=== PATIENT | female | born 1960 | race African-American/Black ===

== ENCOUNTER 2018-11-06 10:56 | Emergency (ER) | payer OTHER ==
[2018-11-06 11:08] VITALS: BMI 28.3
--- NOTE | 2018-11-06 12:08 | PDOC ---
History of Present Illness - General Chief Complaint: Pain Stated Complaint: RT LOWER ABD PAIN - History of Present Illness Initial Comments: The pt is a 58F w/ no reported PMH who presents for evaluation of 4 days of constant, right flank/inguinal abdominal pain that does radiates to/from her back, was mildly alleviated by Ibuprofen, and is exacerbated by touch/movement and also alleviated by recumbency. Denies fevers/chills, N/V/C/D, chest pain, blood in her urine or stool, dysuria , or changes in sensation. PMD: Dr. Richardson 11/06/18 12:22 Past History - Past Medical History Allergies/Adverse Reactions: Allergies Allergy/AdvReac Type Severity Reaction Status Date / Time No Known Allergies Allergy Verified 11/06/18 11:04 Home Medications: Ambulatory Orders Methocarbamol [Robaxin -] 500 mg PO TID #21 tablet 11/06/18 COPD: No - Immunization History Immunization Up to Date: No - Suicide/Smoking/Psychosocial Hx Smoking Status: Yes Smoking History: Never smoked Have you smoked in the past 12 months: Yes Number of Cigarettes Smoked Daily: 7 Information on smoking cessation initiated: No 'Breaking Loose' booklet given: 09/17/13 Hx Alcohol Use: No Drug/Substance Use Hx: No Review of Systems - Review of Systems Able to Perform ROS?: Yes Comments:: GENERAL/CONSTITUTIONAL: No fever or chills. No weakness HEAD, EYES, EARS, NOSE AND THROAT: No change in vision and hearing. No sore throat CARDIOVASCULAR: No chest pain or shortness of breath RESPIRATORY: Denies cough, hemoptysis GASTROINTESTINAL: No nausea, vomiting, diarrhea or constipation GENITOURINARY: No dysuria, frequency, or change in urination MUSCULOSKELETAL: No joint or muscle swelling or pain. No neck or back pain SKIN: No rash NEUROLOGIC: No headache, vertigo, loss of consciousness, or change in strength/ sensation ENDOCRINE: No increased thirst. No abnormal weight change HEMATOLOGIC/LYMPHATIC: No anemia, easy bleeding, or history of blood clots ALLERGIC/IMMUNOLOGIC: No hives or skin allergy 11/06/18 12:06 Is the patient limited Icelandic proficient: No *Physical Exam - Vital Signs Last Vital Signs Temp Pulse Resp BP Pulse Ox 98.1 F 75 17 105/44 L 99 11/06/18 11:05 11/06/18 11:05 11/06/18 11:05 11/06/18 11:05 11/06/18 11:05 - Physical Exam Comments: GENERAL: Awake, alert, and oriented to person/place/time, in no acute distress HEAD: No signs of trauma, normocephalic, atraumatic EYES: PERRLA, EOMI, sclera anicteric, conjunctiva clear ENT: Hearing grossly normal, nares patent, oropharynx clear without exudates. Moist mucosa LUNGS: No distress, speaks full sentences, clear to auscultation bilaterally HEART: Regular rate and rhythm, normal S1 and S2, no murmurs appreciated, peripheral pulses normal and equal bilaterally ABDOMEN: Soft, R inguinal/flank TTP w/o rebound or guarding; +R CVA TTP; normoactive bowel sounds EXTREMITIES: Normal inspection, Normal range of motion, no edema. No clubbing or cyanosis NEUROLOGICAL: Cranial nerves II through XII grossly intact. Normal speech, normal gait, no focal sensorimotor deficits SKIN: Warm, Dry, no rash or lesions noted 11/06/18 12:08 ED Treatment Course - LABORATORY CBC & Chemistry Diagram: 11/06/18 12:45 11/06/18 12:45 Medical Decision Making - Medical Decision Making The pt is a 58F w/ no reported PMH who presents for evaluation of R flank/ inguinal pain for 4 days ED Course labs sent UA Toradol for pain CT spiral for evaluation of nephrolithiasis CT w/o acute pathology Labs unremarkable UA w/o evidence of UTI and w/o blood Pt feels improved s/p toradol Plan for D/C w/ Neurology f/u Rx for Robaxin sent to pt's pharmacy Discharge instructions and return precautions given Pt in agreement and verbalized understanding Dispo: home 11/06/18 12:33 *DC/Admit/Observation/Transfer Diagnosis at time of Disposition: Flank pain - Discharge Dispostion Disposition: HOME Condition at time of disposition: Improved Decision to Admit order: No - Prescriptions Prescriptions: Methocarbamol [Robaxin -] 500 mg PO TID #21 tablet - Referrals Referrals: Alida Darden MD [Primary Care Provider] - - Patient Instructions Printed Discharge Instructions: DI for Flank Pain Additional Instructions: You were seen in the Emergency Department for evaluation of flank pain. Your labs were unremarkable and your CT scan was negative for acute pathology. For pain, you may take Ibuprofen up to 600mg every 6 hours and Tylenol 650mg every 6 hours for pain, alternating each one every 6 hours. Review the handout provided at discharge. A prescription was sent to your pharmacy for Robaxin, take as directed for break through pain. Return to the Emergency Department if you develop fevers/chills, vomiting, diarrhea, blood in your urine or stool, worsening symptoms, or any new/ concerning symptoms. - Post Discharge Activity Forms/Work/School Notes: Back to Work
[2018-11-06] MEDS ORDERED: KETOROLAC TROMETHAMINE 15 MG/ML VIAL IVPUSH ONE (12:21)
--- NOTE | 2018-11-06 12:28 | PDOC ---
Attending Attestation - Resident Resident Name: Terry Hill - ED Attending Attestation I have performed the following: I have examined & evaluated the patient, The case was reviewed & discussed with the resident, I agree w/resident's findings & plan, Exceptions are as noted - HPI HPI: 11/06/18 12:50 Ms. Goodwin is a 58 yo F who presents to the ER with a complaint of right lower abdominal pain Pain has been present for the past 3-4 days Pt has been trying to use motrin and tylenol for pain, no relief Pain is described as "pain", rated "Severe" Pt has not had these symptoms in the past She does have a history of back pain for which she was followed by pain management (did not gt a MRI as was planned for insurance reasons) Pt states this pain is NOT like the pain she has previously had No trauma, no heavy lifting Pt denies dysuria, hematuria, pyuria Pt denies diarrhea, vomiting Pt denies fevers or chills 11/06/18 12:50 - Physicial Exam PE: 11/06/18 12:49 GENERAL: The patient is in no acute distress. ENT: Ears normal, nares patent, oropharynx clear without exudates. Moist mucous membranes. No tonsillar enlargement, no exudates NECK: Normal range of motion, supple, no nuchal rigidity LUNGS: Breath sounds equal, clear to auscultation bilaterally. No wheezes, and no crackles. HEART:Regular rate and rhythm, normal S1 and S2 without murmur, rub or gallop. ABDOMEN: Soft, right lower abdominal tenderness to palpation, voluntary guarding , no rebound EXTREMITIES: Normal range of motion, no edema. NEUROLOGICAL: Cranial nerves II through XII grossly intact. Normal speech. No focal neurological deficits. SKIN: Warm, Dry, normal turgor, no rashes or lesions noted. 11/06/18 13:00 - Medical Decision Making 11/06/18 13:03 58 yo F presenting with R Flank, RLQ pain DD: musculoskeletal pain/strain, kidney stone, pyelonephritis, disc herniation Will do: Labs Spiral CT UA, Urine culture Laboratory Tests 11/06/18 11/06/18 11/06/18 12:45 12:45 12:45 WBC 12.8 H Hgb 12.4 Hct 39.2 Plt Count 363 D BUN 6 L Creatinine 0.6 Urine Blood Negative Urine Nitrite Negative Ur Leukocyte Esterase Negative 11/09/18 12:[address] - no stone seen symptoms likely related to musculoskeletal pain
[2018-11-06] MEDS ORDERED: KETOROLAC TROMETHAMINE 15 MG/ML VIAL ONE ×2 (12:33→12:46)
[2018-11-06 12:59] LABS: HEMATOCRIT 39.2 % (32.4-45.2); HEMOGLOBIN 12.4 GM/dL (10.7-15.3); MCH 22.9 pg (25.7-33.7); MCHC 31.7 g/dl (32.0-36.0); MEAN CELL VOLUME 72.2 fl (80-96); MEAN PLT VOLUME 7.8 fl (7.5-11.1); PLATELET COUNT 363 K/MM3 (134-434); RBC 5.42 M/mm3 (3.60-5.2); RDW 15.2 % (11.6-15.6); WHITE BLOOD COUNT 12.8 K/mm3 (4.0-10.0)
[2018-11-06 13:09] LABS: URINE APPEARANCE CLEAR; URINE BILIRUBIN NEGATIVE (NEGATIVE); URINE COLOR YELLOW; URINE GLUCOSE (UA) NEGATIVE (NEGATIVE); URINE KETONE NEGATIVE (NEGATIVE); URINE LEUK ESTERASE NEGATIVE (NEGATIVE); URINE NITRITE NEGATIVE (NEGATIVE); URINE PROTEIN NEGATIVE (NEGATIVE); URINE UROBILINOGEN 0.2 mg/dL (0.2-1.0)
[2018-11-06 13:28] LABS: ALBUMIN 3.6 g/dl (3.4-5.0); ALK PHOS 89 U/L (45-117); ANION GAP 7 MMOL/L (8-16); BILIRUBIN,TOTAL 0.2 mg/dL (0.2-1); BLOOD UREA NITROGEN 6 mg/dL (7-18); CALCIUM 8.3 mg/dL (8.5-10.1); CHLORIDE 109 mmol/L (98-107); CO2 25 mmol/L (21-32); CREATININE 0.6 mg/dL (0.55-1.3); GLUCOSE,RANDOM 76 mg/dL (74-106); POTASSIUM 4.3 mmol/L (3.5-5.1); SGOT/AST 10 U/L (15-37); SGPT/ALT 15 U/L (13-61); SODIUM 141 mmol/L (136-145)
[2018-11-06 15:13] VITALS: BP 108/56; PULSE 70; TEMP 97.9
== END 2018-11-06 15:47 | disposition home or self-care (01) ==
LOC: JER 10:56
PROC: 3E0333Z Introduction of Anti-inflammatory into Peripheral Vein, Percutaneous Approach (ICD-10-PCS; principal; 2018-11-06)
DX: R10.31 Right lower quadrant pain (principal)
CPT/HCPCS: 36415; 74176-TC; 80053; 81003; 85027; 87086; 99283-25

== ENCOUNTER 2019-08-22 14:27 | Emergency (ER) | payer OTHER ==
[2019-08-22 14:39] VITALS: BP 114/57; PULSE 96; TEMP 100.2; BMI 27.4
--- NOTE | 2019-08-22 14:39 | PDOC ---
Rapid Medical Evaluation Time Seen by Provider: 08/22/19 14:35 Medical Evaluation: Allergies Allergy/AdvReac Type Severity Reaction Status Date / Time No Known Allergies Allergy Verified 11/06/18 11:04 08/22/19 14:35 I have performed a brief in-person evaluation of this patient. The patient presents with a chief complaint of:cough w/ pleuritic CP, sob, body aches and fever x 1 week Pertinent physical exam findings:Low grade fever I have ordered the following:flu, CXR The patient will proceed to the ED for further evaluation Discharge Disposition - Diagnosis Viral syndrome - Referrals - Patient Instructions - Post Discharge Activity
[2019-08-22] MEDS ORDERED: IBUPROFEN 600 MG TABLET (FP) PO ONE ×2 (15:10→15:14)
--- NOTE | 2019-08-22 15:27 | PDOC ---
History of Present Illness - General Chief Complaint: Cold Symptoms Stated Complaint: FLU SYMPTOMS Time Seen by Provider: 08/22/19 14:35 History Source: Patient Exam Limitations: No Limitations - History of Present Illness Initial Comments: 08/22/19 15:22 Patient is a 59-year-old female with no past medical history presents to the ED with complaint of cough, subjective fevers, chills for the last 1 week. She states that she was trying to treated herself believing that she had a common cold but her symptoms would not resolve. She took Tylenol Cold yesterday but it did not help very much. She denies getting a flu shot this year. She also admits to body aches. Past History - Past Medical History Allergies/Adverse Reactions: Allergies Allergy/AdvReac Type Severity Reaction Status Date / Time No Known Allergies Allergy Verified 08/22/19 14:36 Home Medications: Ambulatory Orders NK [No Known Home Medication] 08/22/19 COPD: No - Immunization History Immunization Up to Date: No - Psycho Social/Smoking Cessation Hx Smoking Status: Yes Smoking History: Current every day smoker Have you smoked in the past 12 months: Yes Number of Cigarettes Smoked Daily: 7 Information on smoking cessation initiated: No 'Breaking Loose' booklet given: 09/17/13 Hx Alcohol Use: No Drug/Substance Use Hx: No Review of Systems - Review of Systems Comments:: 08/22/19 15:23 - Review of Systems Able to Perform ROS?: Yes Constitutional: No: Loss of Appetite, Night Sweats, Weakness; + Subjective Fever , + Chills HEENTM: No: Eye Pain, Vision changes, Ear Pain, Throat Pain, Throat Swelling, Mouth Pain, Difficulty Swallowing Respiratory: No: Shortness of Breath, Wheezing, Sputum Production, + Cough Cardiac (ROS): No: Chest Pain, Chest Tightness, Palpitations, Irregular Heart Beat, Edema ABD/GI: No: Nausea, Vomiting, Abdominal Pain, Diarrhea : No Dysuria, No Hematuria, No Frequency, No Urgency Musculoskeletal: No: Back Pain, Joint Pain, Muscle Weakness, Neck Pain, + Muscle Pain Integumentary: No: Lesions, Rash Neurological: No: Headache, Numbness, Tingling, Weakness, Speech Difficulties 08/22/19 15:25 *Physical Exam - Vital Signs Last Vital Signs Temp Pulse Resp BP Pulse Ox 100.2 F H 96 H 18 114/57 L 100 08/22/19 14:36 08/22/19 14:36 08/22/19 14:36 08/22/19 14:36 08/22/19 14:36 - Physical Exam 08/22/19 15:24 - Physical Exam General Appearance: Nourished, Appropriately Dressed, No Distress HEENT: EOMI, Normal Voice, No Pharyngeal Erythema, No Muffled/Hoarse voice, No Tonsillar Exudate, No Tonsillar Erythema, + Nasal Congestion, +Rhinorrhea, Hearing Grossly Normal, TMs Normal, No TM Bulging, No TM Dullness, No TM Erythema Neck: Supple, No Lymphadenopathy (R), No Lymphadenopathy (L), No Rigidity, No Decreased range of motion Respiratory/Chest: Lungs Clear, Normal Breath Sounds. No Respiratory Distress, No Accessory Muscle Use, + wet sounding cough appreciated Cardiovascular: Regular Rhythm, Regular Rate, S1, S2 Gastrointestinal/Abdominal: Normal Bowel Sounds, Soft. Non-tender, No Guarding , No Rebound, No Rigidity Musculoskeletal: Normal Inspection. No Decreased Range of Motion Extremity: Normal Capillary Refill, Normal Inspection Integumentary: Normal Color, Dry. No Rash Neurologic: hand washer II-XII NML intact, Fully Oriented, Alert, Normal Mood/Affect, Normal Response ED Treatment Course - ADDITIONAL ORDERS Additional order review: 08/22/19 16:05 Laboratory Tests 08/22/19 14:39 Influenza A (Rapid) Negative Influenza B (Rapid) Negative - RADIOLOGY Chest X-Ray Result: No Infiltrates - Medications Given in the ED: ED Medications Discontinued Medications Generic Name Dose Route Start Last Admin Trade Name Freq PRN Reason Stop Dose Admin Ibuprofen 600 mg 08/22/19 15:10 08/22/19 15:16 Motrin - PO 08/22/19 15:11 600 mg ONCE ONE Administration Medical Decision Making - Medical Decision Making 08/22/19 15:26 Patient is a 59-year-old female with cough, fever and body aches for the last 1 week. -Flu swab has been sent -Chest x-ray pending -Patient given Motrin in the ED -Will reassess 08/22/19 16:05 Patient has been made aware that her flu swab has resulted as negative. Her chest x-ray does not show no acute pathology. Patient is to follow-up with her primary doctor within 1 to 2 days for repeat evaluation. She can continue Tylenol and ibuprofen for fevers and body aches. Discharge - Discharge Information Problems reviewed: Yes Clinical Impression/Diagnosis: Viral syndrome Condition: Stable Disposition: HOME - Follow up/Referral Referrals: Alida Darden MD [Primary Care Provider] - - Patient Discharge Instructions Patient Printed Discharge Instructions: DI for Common Cold Additional Instructions: Get plenty of rest and drink plenty of fluids. Alternate Tylenol and ibuprofen for fevers or body aches. Follow-up with your primary doctor within 1 to 2 days for repeat evaluation. - Post Discharge Activity
== END 2019-08-22 16:13 | disposition home or self-care (01) ==
LOC: JERFT 14:27
DX: B34.9 Viral infection, unspecified (principal); F17.210 Nicotine dependence, cigarettes, uncomplicated
CPT/HCPCS: 71046-TC-FY; 87804; 99282-25

== ENCOUNTER 2020-10-09 11:19 | Emergency (ER) | payer OTHER ==
[2020-10-09 11:31] VITALS: BP 112/43; PULSE 82; TEMP 98.1; BMI 27.2
[2020-10-09] MEDS ORDERED: IBUPROFEN 600 MG TABLET (FP) PO ONE ×2 (11:50→11:58)
== END 2020-10-09 12:08 | disposition home or self-care (01) ==
LOC: JERFT 11:19
DX: M62.838 Other muscle spasm (principal)
CPT/HCPCS: 99284-25

== ENCOUNTER 2021-11-12 19:04 | Emergency (ER) | payer OTHER ==
[2021-11-12 19:13] VITALS: BP 115/75; PULSE 98; TEMP 98.1; BMI 27.4
[2021-11-12] MEDS ORDERED: SODIUM CHLORIDE 0.9% 500 ML INFUS.BAG IV ONE (20:06)
[2021-11-12 20:21] LABS: BASO % 0.9 % (0-2.0); EOS % 0.8 % (0-4.5); HEMATOCRIT 37.9 % (32.4-45.2); HEMOGLOBIN 12.4 GM/dL (10.7-15.3); MCH 23.1 pg (25.7-33.7); MCHC 32.6 g/dl (32.0-36.0); MEAN CELL VOLUME 70.8 fl (80-96); MEAN PLT VOLUME 7.5 fl (7.5-11.1); MONO % 12.1 % (3.8-10.2); NEUT % 68.2 % (42.8-82.8); PLATELET COUNT 284 10^3/uL (134-434); RBC 5.35 M/mm3 (3.60-5.2); RDW 14.5 % (11.6-15.6); WHITE BLOOD COUNT 14.7 K/mm3 (4.0-10.0)
[2021-11-12 20:34] LABS: ALBUMIN 3.5 g/dl (3.4-5.0); BLOOD UREA NITROGEN 9.6 mg/dL (7-18); CALCIUM 8.8 mg/dL (8.5-10.1)
[2021-11-12 20:37] LABS: CREATININE 0.9 mg/dL (0.55-1.3)
[2021-11-12 20:39] LABS: BILIRUBIN,TOTAL 0.2 mg/dL (0.2-1); TOT PROT 6.8 g/dl (6.4-8.2)
[2021-11-12 21:05] LABS: PH,URINE 5.5 (5.0-8.0); URINE APPEARANCE CLEAR; URINE BILIRUBIN NEGATIVE (NEGATIVE); URINE COLOR YELLOW; URINE GLUCOSE (UA) NEGATIVE (NEGATIVE); URINE KETONE NEGATIVE (NEGATIVE); URINE LEUK ESTERASE NEGATIVE (NEGATIVE); URINE NITRITE NEGATIVE (NEGATIVE); URINE PROTEIN NEGATIVE (NEGATIVE)
== END 2021-11-12 22:13 | disposition home or self-care (01) ==
LOC: JER 19:04
DX: R42 Dizziness and giddiness (principal)
CPT/HCPCS: 36415; 71045-TC-FY; 80053; 81003; 84484; 85025; 87086; 93005; 93010; 99285-25

== ENCOUNTER 2023-06-15 06:14 | Inpatient (IN) | payer BC, OTHER ==
[2023-06-11 15:49] VITALS: BMI 24.8
[2023-06-15] MEDS ORDERED: CEFAZOLIN 2 GM in DEXTROSE 5%-WATER - 100 ML IVPB ONE (09:15)
[2023-06-15] MEDS ORDERED: PROPOFOL 20 ML ONE (09:53)
[2023-06-15] MEDS ORDERED: MIDAZOLAM HCL 2 MG/2 ML SINGLE DOSE VIAL ONE (09:53)
[2023-06-15] MEDS ORDERED: LIDOCAINE HCL/PF 2% SDV 5ML VIAL ONE (09:53)
[2023-06-15] MEDS ORDERED: TRANEXAMIC ACID 1000 MG/10 ML VIAL IVPUSH ONE (10:15)
[2023-06-15] MEDS ORDERED: ROPIVACAINE HCL 0.5% 30ML VIAL ONE (10:20)
[2023-06-15] MEDS ORDERED: BUPIVACAINE HCL/PF 0.5% (5MG/ML) 10 ML VIAL ONE (10:20)
[2023-06-15] MEDS ORDERED: DEXAMETHASONE SOD PHOSPHATE 4 MG/1 ML VIAL ONE (11:05)
[2023-06-15] MEDS ORDERED: ceFAZolin SODIUM 1 GM VIAL ONE (11:05)
[2023-06-15] MEDS ORDERED: VANCOMYCIN 1,000 MG VIAL (RESTRICTED TO ID ONLY) ONE ×2 (11:09→11:54)
[2023-06-15] MEDS ORDERED: LACTATED RINGERS SOLUTION 1,000 ML IV SCH ×2 (11:45→14:15)
[2023-06-15] MEDS ORDERED: ONDANSETRON 4 MG/2 ML VIAL IVPUSH PRN ×2 (11:45→14:01)
[2023-06-15] MEDS ORDERED: oxyCODONE HCL 5 MG TABLET PO PRN ×2 (11:45)
[2023-06-15] MEDS ORDERED: BUPIVICAINE 0.25%/MORPH PF/KETOROLAC - 51ML DISP.SYRINGE IA ONE ×2 (12:22→13:12)
[2023-06-15] MEDS ORDERED: MAG HYDROX/AL HYDROX/SIMETH 30 ML UNIT-DOSE CUP PO PRN (14:01)
[2023-06-15] MEDS ORDERED: MAGNESIUM HYDROX 2400MG/30ML ORAL SUSPENSION 30 ML CUP PO PRN (14:01)
[2023-06-15] MEDS: KETOROLAC TROMETHAMINE 30 MG/1 ML VIAL IVPUSH SCH ×3 (14:08→19:31)
[2023-06-15] MEDS: ACETAMINOPHEN 1000 MG/100 ML BAG IVPB ONE ×2 (14:10→16:22)
[2023-06-15] MEDS: CEFAZOLIN 1 GM in DEXTROSE 5%-WATER - 50 ML IVPB SCH (19:30)
[2023-06-15] MEDS: ACETAMINOPHEN 325 MG TABLET (FP) PO SCH (19:31)
[2023-06-15] MEDS ORDERED: ACETAMINOPHEN 500 MG TABLET (FP) PO SCH ×2 (20:00)
[2023-06-15] MEDS: oxyCODONE HCL 10 MG SUSTAINED ACTING TABLET PO SCH (21:33)
[2023-06-15] MEDS: SENNOSIDES/DOCUSATE COMBO (SENNA PLUS) TABLET (UD) PO SCH (21:33)
[2023-06-15] MEDS ORDERED: GABAPENTIN 300 MG CAPSULE PO SCH (22:00)
[2023-06-16] MEDS: ACETAMINOPHEN 325 MG TABLET (FP) PO SCH ×4 (03:12→20:53)
[2023-06-16] MEDS: CEFAZOLIN 1 GM in DEXTROSE 5%-WATER - 50 ML IVPB SCH ×3 (03:12→20:54)
[2023-06-16 08:21] LABS: HEMATOCRIT 27.4 % (32.4-45.2); HEMOGLOBIN 8.6 G/dL (10.7-15.3); MCH 23.3 pg (25.7-33.7); MCHC 31.4 g/dl (32.0-36.0); MEAN CELL VOLUME 74.2 fl (80-96); MEAN PLT VOLUME 8.3 fl (7.5-11.1); PLATELET COUNT 238.9 10^3/uL (134-434); RBC 3.69 10^6/uL (3.60-5.2); RDW 17.4 % (11.6-15.6); WHITE BLOOD COUNT 18.8 10^3/uL (4.0-10.8)
[2023-06-16] MEDS: PANTOPRAZOLE 40 MG TABLET PO SCH (10:45)
[2023-06-16] MEDS: MULTIVITAMINS (DAILY MVI) TABLET (FP) PO SCH (10:46)
[2023-06-16] MEDS: SENNOSIDES/DOCUSATE COMBO (SENNA PLUS) TABLET (UD) PO SCH ×2 (10:46→21:51)
[2023-06-16] MEDS: ASPIRIN COATED 81 MG TABLET.EC PO SCH ×2 (10:46→21:51)
[2023-06-16] MEDS: oxyCODONE HCL 10 MG SUSTAINED ACTING TABLET PO SCH ×2 (10:47→21:51)
[2023-06-16 11:02] LABS: POTASSIUM 4.2 mmol/L (3.5-5.1)
[2023-06-16 11:04] LABS: CALCIUM 8.1 mg/dL (8.5-10.1)
[2023-06-16 11:05] LABS: BLOOD UREA NITROGEN 12.3 mg/dL (7-18)
[2023-06-16 11:08] LABS: CREATININE 0.7 mg/dL (0.55-1.3)
[2023-06-17] MEDS: ACETAMINOPHEN 325 MG TABLET (FP) PO SCH ×4 (03:08→21:45)
[2023-06-17 09:28] LABS: HEMATOCRIT 27.5 % (32.4-45.2); HEMOGLOBIN 8.6 G/dL (10.7-15.3); MCH 23.2 pg (25.7-33.7); MCHC 31.2 g/dl (32.0-36.0); MEAN CELL VOLUME 74.1 fl (80-96); MEAN PLT VOLUME 8.6 fl (7.5-11.1); PLATELET COUNT 232.7 10^3/uL (134-434); RBC 3.71 10^6/uL (3.60-5.2); RDW 17.5 % (11.6-15.6); WHITE BLOOD COUNT 20.1 10^3/uL (4.0-10.8)
[2023-06-17] MEDS: oxyCODONE HCL 10 MG SUSTAINED ACTING TABLET PO SCH ×2 (10:14→21:58)
[2023-06-17] MEDS: SENNOSIDES/DOCUSATE COMBO (SENNA PLUS) TABLET (UD) PO SCH ×2 (10:16→21:45)
[2023-06-17] MEDS: ASPIRIN COATED 81 MG TABLET.EC PO SCH ×2 (10:16→21:45)
[2023-06-17] MEDS: MULTIVITAMINS (DAILY MVI) TABLET (FP) PO SCH (10:16)
[2023-06-17] MEDS: PANTOPRAZOLE 40 MG TABLET PO SCH (10:17)
[2023-06-17] MEDS: ENOXAPARIN NA (PORCINE) 40 MG/0.4 ML DISP.SYRIN SQ SCH (14:17)
[2023-06-17 20:43] VITALS: RESP 19
[2023-06-18] MEDS: ACETAMINOPHEN 325 MG TABLET (FP) PO SCH ×2 (03:26→08:23)
[2023-06-18 06:39] VITALS: PULSE 98
[2023-06-18 09:11] VITALS: BP 107/58; TEMP 98.7
[2023-06-18] MEDS: PANTOPRAZOLE 40 MG TABLET PO SCH (09:22)
[2023-06-18] MEDS: oxyCODONE HCL 10 MG SUSTAINED ACTING TABLET PO SCH (09:22)
[2023-06-18] MEDS: MULTIVITAMINS (DAILY MVI) TABLET (FP) PO SCH (09:22)
[2023-06-18] MEDS: ASPIRIN COATED 81 MG TABLET.EC PO SCH (09:22)
[2023-06-18] MEDS: SENNOSIDES/DOCUSATE COMBO (SENNA PLUS) TABLET (UD) PO SCH (09:22)
[2023-06-18] MEDS: ENOXAPARIN NA (PORCINE) 40 MG/0.4 ML DISP.SYRIN SQ SCH (09:31)
== END 2023-06-18 13:51 | disposition home or self-care (01) | DRG 470 ==
LOC: FASUSAT 06:14 → FM/S 15:30 → FASUSAT 16:38 → FM/S 16:38
PROVIDERS: ADMIT Family Medicine
PROC: 0SRB0JZ Replacement of Left Hip Joint with Synthetic Substitute, Open Approach (ICD-10-PCS; principal; 2023-06-15 11:42)
DX: M16.12 Unilateral primary osteoarthritis, left hip (principal); D72.829 Elevated white blood cell count, unspecified; E78.5 Hyperlipidemia, unspecified
CPT/HCPCS: 36415; 73502-TC-LT-FY; 80048; 85027; 88305-TC; 88311-TC; 94760; 97010-GP; 97110-GP; 97116-GP; 97161-GP; C1776; C1889

== ENCOUNTER 2023-12-02 04:22 | Emergency (ER) | payer BC, OTHER ==
[2023-12-02 04:31] VITALS: BP 108/58; PULSE 80; RESP 18; TEMP 97; BMI 25.2
== END 2023-12-02 06:00 | disposition home or self-care (01) ==
LOC: JER 04:22
DX: Z20.822 Contact with and (suspected) exposure to COVID-19 (principal)
CPT/HCPCS: 0241U-QW; 99283-25